=== PATIENT | female | born 2000 | race Caucasian/White ===

== ENCOUNTER 2021-03-17 13:41 | Outpatient (CLI) | payer BC, SELFPAY | END 2021-03-17 13:42 | disposition home or self-care (01) | LOC: ANHBWCLAB 13:42 | PROVIDERS: PCP Family Medicine; Visit Provider Family Medicine | DX: E66.3 Overweight (principal) | CPT/HCPCS: 36415; 84443 ==

== ENCOUNTER 2021-04-09 18:58 | Emergency (ER) | payer BC, SELFPAY ==
[2021-04-09 19:05] VITALS: BP 140/76; PULSE 100; RESP 18; TEMP 36.7; O2SAT 98
--- NOTE | 2021-04-09 19:11 | ED.FEMALEGU ---
HPI - Female Genitourinary General Chief complaint: Urogenital-Female Stated complaint: lower right abdo and back pain Time Seen by Provider: 04/09/21 19:11 Source: patient Mode of arrival: ambulatory Limitations: no limitations History of Present Illness HPI Narrative: Suzanne is a 21-year-old female patient who ambulated into the [facility]. Patient has a 2-day history of urinary frequency rates her pain a 9 with urination. Patient complains of pubic pain. Denies fever. Slight nausea MD elicited complaint: dysuria Related Data Allergies Allergy/AdvReac Type Severity Reaction Status Date / Time No Known Allergies Allergy Verified 04/09/21 19:22 Review of Systems Review of Systems: CONSTITUTIONAL: Denies body aches, fever, chills, or sweats. EYES: Denies visual changes, redness, or discharge. ENT: Denies rhinorrhea, congestion, sore throat, or otalgia. CARDIOVASCULAR: Denies chest pain, palpitations, or edema. RESPIRATORY: Denies cough or dyspnea. GASTROINTESTINAL: Denies abdominal pain, nausea, vomiting, or diarrhea. GENITOURINARY: + dysuria denies hematuria. SKIN: Denies rash, itching, or wounds. MUSCULOSKELETAL: Denies back pain, joint pain, or myalgia. NEUROLOGIC: Denies headache, numbness, tingling, or weakness. PSYCH: Denies depression or anxiety. All systems reviewed & are unremarkable except as noted in HPI and below PMFSH Past Medical History Medical History Allergies Anxiety Depression IBS (irritable bowel syndrome) Sinus headache Surgical History Surgical History History of tonsillectomy [place] teeth extracted Family History Family History Sibling Diabetes mellitus brother Mother Hypertension Depression Anxiety Grandparent Hypertension grandmother Depression Anxiety Thyroid disorder Social History Social History Smoking status: Never smoker Alcohol intake: current Substance use: never Comments At time of signature, I have reviewed and agree with nursing past medical, surgical, social and family history unless otherwise noted. Please see nursing chart for further information. There is no relevant family history pertinent to the presenting complaint Exam Narrative: GENERAL: Well-appearing, well-nourished, and in no acute distress. HEAD: Normocephalic, atraumatic. EYES: EOMI. No redness or drainage. Conjunctivae normal. ENT: Mucous membranes pink and moist. Nares clear. No rhinorrhea. TMs normal bilaterally. Throat normal. Uvula midline. NECK: Normal AROM. Supple. No lymphadenopathy. CHEST: No respiratory distress. Clear to auscultation. HEART: Regular rate and rhythm. No murmur appreciated. Normal peripheral pulses. ABDOMEN: Soft, nontender, nondistended, normal active bowel sounds, negative for rebound tenderness. Negative for psoas sign. Increased pain with palpation in the suprapubic area. Negative CVA tenderness bilaterally MUSCULOSKELETAL: No bony tenderness. EXTREMITIES: Normal range of motion. No edema. SKIN: Warm, dry, no rash. Capillary refill normal. Normal skin turgor. NEURO: No focal deficits. Alert and oriented x3. Gait steady. PSYCH: Normal affect. No signs of depression or anxiety. Course Vital Signs Vital signs: Vital Signs Temperature 36.7 C 04/09/21 19:05 Pulse Rate 100 04/09/21 19:05 Respiratory Rate 18 04/09/21 19:05 Blood Pressure 140/76 04/09/21 19:05 Pulse Oximetry 98 04/09/21 19:05 Temperature 36.7 C 04/09/21 19:05 Pulse Rate 100 04/09/21 19:05 Respiratory Rate 18 04/09/21 19:05 Blood Pressure 140/76 04/09/21 19:05 Pulse Oximetry 98 04/09/21 19:05 Reviewed. Pt has been instructed to follow up with her PCP regarding her elevated blood pressure today. [facility]
== END 2021-04-09 19:50 | disposition home or self-care (01) ==
PROVIDERS: Emergency Provider Nurse Practitioner Family; PCP Family Medicine
DX: N39.0 Urinary tract infection, site not specified (principal); F41.9 Anxiety disorder, unspecified; F32.A Depression, unspecified
CPT/HCPCS: 81003; 87086; 99213; G0463

== ENCOUNTER 2021-04-09 22:15 | Emergency (ER) | payer BC, SELFPAY ==
--- NOTE | ~2021-04-09 | US_ITS ---
EXAMINATION: US pelvic complete w TV DATE: 04/10/2021 05:08 INDICATION: Right adnexal pain. TECHNIQUE: Multiple transabdominal and transvaginal sonographic images of the pelvis were obtained. COMPARISON: CT abdomen and pelvis 04/10/2021 FINDINGS: TRANSABDOMINAL ULTRASOUND: The uterus measures 6.6 x 4.1 x 2.2 cm. There is no free fluid in the pelvis. TRANSVAGINAL ULTRASOUND: The endometrial complex measures 3 mm in thickness. The right ovary measures 5.2 x 4.3 x 4.7 cm. Ther e is a 4.4 cm cyst in right ovary. The left ovary measures 2.5 x 1.8 x 1.4 cm. There is normal vascul ar flow in the ovaries. IMPRESSION: 1. 4.4 cm cyst in right ovary, likely a follicular cyst. Reviewed, dictated and finalized at location A. O LUMITE INJECTOR
--- NOTE | ~2021-04-09 | CT_ITS ---
EXAMINATION: CT abdomen pelvis w con DATE: 04/10/2021 02:51 INDICATION: Right lower quadrant abdominal pain. TECHNIQUE: Computed tomography (CT) of the abdomen and pelvis was performed without intravenous contr ast. Automated exposure control and iterative reconstruction technique were employed. The dose-length product was 457.18 mGy-cm. COMPARISON: Ultrasound pelvis 04/10/2021 FINDINGS: The visualized portions of the lung bases are clear without pneumonia or pleural effusion. The heart size is normal. No pericardial effusion. The liver, gallbladder, spleen, pancreas, adrenal glands, and kidneys are normal. There are no dilated loops of bowel. The appendix is normal. There is a 4.4 cm cyst in right ovary. There are no pathologically enlarged lymph nodes. There is no free int raperitoneal fluid. The bones are unremarkable. IMPRESSION: 1. 4.4 cm cyst in right ovary, likely a follicular cyst. Reviewed, dictated and finalized at location A. R OPERATOR
[2021-04-09 22:22] VITALS: BP 143/88; PULSE 126; RESP 16; TEMP 37.6; O2SAT 99
[2021-04-10] VITALS (7 sets, daily range): BP systolic 112–135; BP diastolic 53–79; PULSE 96–125; RESP 16–20; TEMP 37.2; O2SAT 95–98
[2021-04-10 00:46] LABS: Basophils Percent Auto 0.6 % (0.2-1.2); Eosinophils Absolute Auto 0.1 K/mm3 (0-0.3); Eosinophils Percent Auto 0.9 % (0-4.4); Hematocrit 37.2 % (37.0-47.0); Hemoglobin 13.1 g/dL (12.0-15.0); Immature Granulocyte Absolute 0.03 K/mm3 (0.00-0.031); Immature Granulocyte Percent A 0.4 % (0-0.5); Lymphocytes Absolute Auto 0.32 K/mm3 (0.9-3.2); Lymphocytes Percent Auto 4.6 % (18.3-44.2); Mean Corpuscular HGB Conc 35.2 g/dl (32-36); Mean Corpuscular Hemoglobin 29.8 pg (26-34); Mean Corpuscular Volume 84.5 fl (80-100); Mean Platelet Volume 9.6 fl (7.4-10.4); Monocytes Absolute Auto 0.8 K/mm3 (0.1-0.6); Monocytes Percent Auto 11.2 % (2.6-8.5); Neutrophils Absolute Auto 5.8 K/mm3 (1.3-6.7); Neutrophils Percent Auto 82.3 % (45.5-73.1); Platelet Count Result 206 k/mm3 (150-375); Red Cell Distribution Width 12.3 % (11.5-14.5)
[2021-04-10 00:57] LABS: Add Urine Microscopic? YES; Appearance Urine Clear (Clear); Bilirubin Urine Negative (Negative); Blood Urine Negative (Negative); Color Urine Amber (Yellow); Glucose Urine UA Negative (Negative); Ketones Urine Negative (Negative); Leukocyte Esterase Ur Negative LEU/UL (Negative); Nitrate Urine Positive (Negative); Protein Urine Negative (Negative); RBC Urine 0-2 /hpf (0-2); Specific Grav Ur 1.018 (1.001-1.035); Squamous Epithelial Cell Urine Few /hpf (Few); WBC Urine 0-3 /hpf
[2021-04-10 00:58] LABS: Alanine Aminotransferase 55 U/L (4-35); Albumin Level 4.8 g/dL (3.5-5.1); Alkaline Phosphatase 88 U/L (38-126); Anion Gap 14 mmol/L (8-16); Aspartate Amino Transferase 41 U/L (14-36); Bilirubin,Total 0.3 mg/dL (0.2-1.3); Blood Urea Nitrogen 14 mg/dL (7-17); Calcium 9.7 mg/dL (8.4-10.2); Carbon Dioxide 20 mmol/L (22-30); Chloride 102 mmol/L (98-107); Estimated CRCL calculation 91 ml/min; Estimated Glomerular Filt Rate > 60; Glucose 103 mg/dL (65-110); Lipase 59 U/L (23-300); Potassium 3.6 mmol/L (3.4-5.0); Sodium 136 mmol/L (137-145)
[2021-04-10] MEDS: SODIUM CHLORIDE 0.9% IV 1,000 ML 999 ML IV CONT (02:28)
[2021-04-10] MEDS: ONDANSETRON INJ 4 MG/2 ML VIAL IV PUSH (02:29)
[2021-04-10] MEDS: MORPHINE SULFATE (*CRX) 4 MG/ML INJ IV PUSH ×2 (02:29→04:00)
--- NOTE | 2021-04-10 03:42 | ED.ABDPAIN ---
HPI - Abdominal Pain General Chief Complaint: Abdominal Pain Stated Complaint: right lower abdominal pain Time Seen by Provider: 04/10/21 02:07 History of Present Illness HPI narrative: Patient is a 21-year-old female who presents ER with right lower quadrant abdominal pain. Worsening over the last 2 days. Was seen in urgent care and prescribed Macrobid. Reports some mild discomfort going into her back. No nausea or vomiting. Pain is worse with movement. Associate with low-grade temperature. She reports a couple loose stools but no overt diarrhea. No known sick contacts. Pain is improved with sitting still. Related Data Allergies Allergy/AdvReac Type Severity Reaction Status Date / Time No Known Allergies Allergy Verified 04/09/21 22:26 Review of Systems Review of Systems: All systems reviewed & are unremarkable except as noted in HPI and below Constitutional: Constitutional: Denies chills, Reports fever(s) and Denies weakness ENT: Denies nasal congestion and Denies sore throat Cardiovascular: Cardiovascular: Denies chest pain, Denies rapid heart rate and Denies radiating jaw, neck or arm pain Respiratory: Respiratory: Denies cough and Denies dyspnea Gastrointestinal: Gastrointestinal: Reports abdominal pain, Reports diarrhea, Denies nausea and Denies vomiting Genitourinary: Genitourinary: Reports nocturia, Reports dysuria and Reports flank pain PMFSH Past Medical History Medical History Allergies Anxiety Depression IBS (irritable bowel syndrome) Sinus headache Surgical History Surgical History History of tonsillectomy [place] teeth extracted Family History Family History Sibling Diabetes mellitus brother Mother Hypertension Depression Anxiety Grandparent Hypertension grandmother Depression Anxiety Thyroid disorder Social History Social History Smoking status: Never smoker Alcohol intake: current Substance use: never Exam Narrative: GENERAL: Uncomfortable-appearing, well-nourished, and in no acute distress. HEAD: Normocephalic, atraumatic. EYES: PERRL and EOMI. CHEST: Clear to auscultation. No respiratory distress. HEART: Regular rate and rhythm. Normal peripheral pulses. ABDOMEN: Soft, tender palpation right lower quadrant without guarding, nondistended. EXTREMITIES: Normal range of motion. No edema. SKIN: Warm, dry, no rash. NEURO: Alert and oriented x3. PSYCH: Normal mood and affect. Course Course Emergency Course: Patient resting comfortably. Informed of results. 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 Govea. Patient encouraged to continue Macrobid for UTI as previously diagnosed. Vital Signs Vital signs: Vital Signs Temperature 99.7 F H 04/09/21 22:22 Pulse Rate 126 H 04/09/21 22:22 Respiratory Rate 16 04/09/21 22:22 Blood Pressure 143/88 H 04/09/21 22:22 Pulse Oximetry 99 04/09/21 22:22 Temperature 99.0 F 04/10/21 00:34 Pulse Rate 97 04/10/21 05:09 Respiratory Rate 18 04/10/21 05:09 Blood Pressure 125/64 04/10/21 05:09 Pulse Oximetry 96 04/10/21 05:09 MDM - Abdominal Pain Lab Data Result diagrams: 04/10/21 00:38 04/10/21 00:38 Labs: Lab Results 04/10/21 04/10/21 04/10/21 Range/Units 00:38 00:38 00:38 WBC 7.0 (4.5-10.0) K/mm3 RBC 4.40 (4.2-5.4) M/mm3 Hgb 13.1 (12.0-15.0) g/dL Hct 37.2 (37.0-47.0) % MCV 84.5 (80-100) fl MCH 29.8 (26-34) pg MCHC 35.2 (32-36) g/dl RDW 12.3 (11.5-14.5) % Plt Count 206 (150-375) k/mm3 MPV 9.6 (7.4-10.4) fl Immature Gran % (Auto) 0.4 (0-0.5) % Neut % (Auto) 82.3 H (45.5-73.1) % Lymph % (Auto) 4.6 L (18.3-44.2) % [place] % (Auto) 11.2 H (2.6-8.5)
== END 2021-04-10 05:58 | disposition home or self-care (01) ==
PROVIDERS: Emergency Provider Emergency Medicine; PCP Family Medicine
DX: N83.201 Unspecified ovarian cyst, right side (principal); K58.9 Irritable bowel syndrome, unspecified
CPT/HCPCS: 36415; 74177; 76830; 76856; 80053; 81001; 81003; 81025; 83690; 85025; 87086; 96361; 96365; 96375; 96376; 99284; J0131; J2270; J2405; J7030; Q9967

== ENCOUNTER 2021-05-25 15:44 | Outpatient (CLI) | payer BC, SELFPAY ==
--- NOTE | ~2021-05-25 | CT_ITS ---
EXAMINATION: CT diagnostic chest w con DATE: 05/25/2021 16:11 INDICATION: Paramediastinal mass described in left upper chest on May 21, 2021 employee chest TECHNIQUE: Computed tomography (CT) of the chest was performed without intravenous contrast. Automate d exposure control and iterative reconstruction technique were employed. Exam dose: 160.69 mGy-cm to emerita exam DLP. COMPARISON: May 21, 2021 [place] chest FINDINGS: Normal heart size. No pericardial or pleural effusion. No thoracic aortic aneurysm or dis section. No hilar or mediastinal mass lesion or lymphadenopathy. The lungs are clear of infiltrate or consolidation. No pulmonary mass lesion. Normal morphology of the adrenal glands. IMPRESSION: Normal examination Reviewed, dictated and finalized at Location [facility]. Reviewed, dictated and finalized at location B. ING LOT SIGNALER IMPRESSION: Normal examination
== END 2021-05-25 15:45 | disposition home or self-care (01) ==
LOC: ANHIMG 15:49
PROVIDERS: PCP Family Medicine; Visit Provider Family Medicine
DX: J98.59 Other diseases of mediastinum, not elsewhere classified (principal)
CPT/HCPCS: 71260; Q9967

== ENCOUNTER 2022-06-24 13:50 | Outpatient (CLI) | payer OTHER, BC, SELFPAY ==
[2022-06-24 19:51] LABS: Alanine Aminotransferase 25 U/L (6-35); Albumin Level 4.5 g/dL (3.5-5.1); Alkaline Phosphatase 87 U/L (38-126); Aspartate Amino Transferase 41 U/L (14-36); Magnesium 1.9 mg/dL (1.6-2.3)
[2022-06-24 20:07] LABS: Iron 188 ug/dL (37-170)
[2022-06-24 20:16] LABS: Percent Iron Saturation 62 % (20-50)
[2022-06-24 20:19] LABS: Thyroid Stimulating Hormone 0.823 uIU/mL (0.465-4.680)
[2022-06-24 20:23] LABS: Vitamin D 25 Hydroxy 45.1 ng/mL
[2022-06-24 20:54] LABS: Folic Acid 8.2 ng/mL (2.76->20)
== END 2022-06-24 13:51 | disposition home or self-care (01) ==
PROVIDERS: PCP Family Medicine; Visit Provider Family Medicine
DX: J98.59 Other diseases of mediastinum, not elsewhere classified (principal); R74.8 Abnormal levels of other serum enzymes; F41.9 Anxiety disorder, unspecified; F32.9 Major depressive disorder, single episode, unspecified; K58.9 Irritable bowel syndrome, unspecified; F98.8 Other specified behavioral and emotional disorders with onset usually occurring in childhood and adolescence; R53.83 Other fatigue; T78.40XA Allergy, unspecified, initial encounter
CPT/HCPCS: 36415; 80076; 82306; 82607; 82746; 83540; 83550; 83735; 84443